=== PATIENT | female | born 1960 | race Caucasian/White ===

== ENCOUNTER → 2018-05-27 | Outpatient (CLI) | payer BC ==
--- NOTE | 2018-06-12 08:45 | Diagnostic Imaging Report ---
#[id number] - [id number] #BILATERAL DIGITAL SCREENING MAMMOGRAM WITH CAD: 05/27/2018 CLINICAL: Routine screening. Comparison is made to exam dated: 10/13/2013 mammogram - [facility]. Current study contains 4 films. The tissue of both breasts is extremely dense, which lowers the sensitivity of mammography. Current study was also evaluated with a Computer Aided Detection (CAD) system. There are benign vascular calcifications and scattered calcifications in both breasts. There also are benign lymph nodes in both breasts. No significant masses, calcifications, or other findings are seen in either breast. There has been no significant interval change. IMPRESSION: BENIGN There is no mammographic evidence of malignancy. A 1 year screening mammogram is recommended. The patient will be notified by letter of the results. Germain Pastrana Jr., D.O. cw/:06/11/2018 13:01:33 [employer] Side Laster: Minerva CONTEH)([place]), [facility] letter sent: Compared to Prior B9 Mammogram BI-RADS: 2 Benign
== END ==
LOC: MAMMO 07:50
PROVIDERS: ATTEND Family Medicine
DX: Z12.31 Encounter for screening mammogram for malignant neoplasm of breast (principal)
CPT/HCPCS: 77067

== ENCOUNTER → 2018-11-08 | Outpatient (CLI) | payer BC ==
--- NOTE | 2018-11-08 11:58 | Diagnostic Imaging Report ---
EXAM: Right upper quadrant abdominal ultrasound INDICATION: Right sided abdominal pain. COMPARISON: Gallbladder ultrasound 11/20/2013. TECHNIQUE: Transverse and longitudinal images of the right upper quadrant abdomen were obtained FINDINGS: Liver: Size: 14.4 cm in the right midclavicular line, normal Appearance: Increased echogenicity, smooth contour Mass: No focal masses Gallbladder: No distention, pericholecystic fluid, wall thickening, stone, or reported sonographic Dela Cruz's sign. Mild gallbladder sludge. Gallbladder wall measures 0.2 cm. Bile Ducts: Intrahepatic Ducts: No dilatation Extrahepatic Ducts: Common bile duct measures 0.3cm, no dilatation Pancreas: Visualized portions of the pancreatic head, neck and proximal body are normal. Kidney: The right kidney measures 9.3 cm without evidence of hydronephrosis or stone. Vessels: Aorta: Visualized portions are normal Inferior Vena Cava: Visualized portions are normal Main Portal Vein: 0.8 cm, normal size with hepatopetal flow. Free Fluid: No evidence of ascites. IMPRESSION: Hepatic steatosis. Mild gallbladder sludge. Signed by: Dr. Thania Ba MD on 11/08/2018 11:55 AM
== END ==
LOC: US 10:30
PROVIDERS: ATTEND Surgery
DX: R10.11 Right upper quadrant pain (principal); K76.0 Fatty (change of) liver, not elsewhere classified; K82.8 Other specified diseases of gallbladder
CPT/HCPCS: 76705

== ENCOUNTER → 2021-01-12 | Outpatient (CLI) | payer OTHER | LOC: MAMMO 14:31 | PROVIDERS: ATTEND Pediatrics | DX: Z12.31 Encounter for screening mammogram for malignant neoplasm of breast (principal); R22.2 Localized swelling, mass and lump, trunk | CPT/HCPCS: 71046; 77067 ==

== ENCOUNTER 2022-03-13 13:34 | Outpatient (RCR) | payer BC | END 2022-03-29 | LOC: PT 13:34 | PROVIDERS: ATTEND Physician Assistant | DX: M75.82 Other shoulder lesions, left shoulder (principal) ==

== ENCOUNTER 2022-08-08 04:15 | Inpatient (IN) | payer BC ==
[~2022-08-08] VITALS: Ht 160 cm; Wt 61.2 kg
[2022-08-08 04:36] LABS: BASOPHILS % 0.2 % (0.0-1.0); EOSINOPHILS # (AUTO) 0.3 (0.0-0.4); EOSINOPHILS % 2.3 % (0.0-6.0); HEMOGLOBIN 13.1 g/dL (12.0-16.0); LYMPHOCYTES # (AUTO) 3.6 (1.0-3.2); LYMPHOCYTES % 26.9 % (18.0-39.1); MEAN CORPUSCULAR HEMOGLOBIN 29.6 pg (28-32); MEAN CORPUSCULAR HGB CONC 30.5 g/dL (31-35); MEAN CORPUSCULAR VOLUME 97.1 fL (81-99); MONOCYTES # (AUTO) 0.9 (0.2-0.8); MONOCYTES % 6.7 % (4.4-11.3); NEUTROPHILS # (AUTO) 8.4 (2.1-6.9); NEUTROPHILS % 63.6 % (38.7-80.0); PLATELET COUNT 294 x10e3/uL (140-360); RED BLOOD COUNT 4.43 x10e6/uL (3.6-5.1); RED CELL DISTRIBUTION WIDTH 12.4 % (11.7-14.4)
[2022-08-08 04:51] LABS: ALANINE AMINOTRANSFERASE 13 IU/L (0-55); ALBUMIN/GLOBULIN RATIO 1.1 (0.8-2.0); ALKALINE PHOSPHATASE 91 IU/L (40-150); ANION GAP 17.5 mmol/L (8-16); BLOOD UREA NITROGEN 19 mg/dL (7-26); BUN/CREATININE RATIO 22 (6-25); CALCIUM 9.2 mg/dL (8.4-10.2); CARBON DIOXIDE 24 mmol/L (22-29); CHLORIDE 104 mmol/L (98-107); CREATINE KINASE 79 IU/L (29-168); CREATININE, SERUM 0.85 mg/dL (0.57-1.11); GLUCOSE 159 mg/dL (74-118); POTASSIUM 3.5 mmol/L (3.5-5.1); SODIUM 142 mmol/L (136-145)
[2022-08-08] MEDS ORDERED: ACETAMINOPHEN 325 MG TAB PO ONE (05:30)
[2022-08-08] MEDS ORDERED: ACETAMINOPHEN 325 MG TAB ONE (05:31)
[2022-08-08] MEDS ORDERED: SODIUM CHLORIDE FLUSH 10 ML SYR INJ PRN (06:00)
[2022-08-08] MEDS ORDERED: ONDANSETRON HCL INJ 2MG/ML 2ML 2 MG/ML VIAL IV PRN (06:00)
[2022-08-08 12:42] VITALS: BP 168/88
[2022-08-08] MEDS ORDERED: PANTOPRAZOLE SO40 MG PO (12:42)
[2022-08-08] MEDS ORDERED: CYCLOBENZAPRINE5 MG PO (12:42)
[2022-08-08] MEDS ORDERED: METOPROLOL SUCC50 MG PO (12:42)
[2022-08-08] MEDS ORDERED: LISINOPRIL20 MG PO (12:42)
[2022-08-08] MEDS ORDERED: ROSUVASTATIN CA20 MG PO (12:42)
[2022-08-08 12:49] VITALS: BP 168/88
[2022-08-08 13:05] VITALS: BP 168/88
[2022-08-08] MEDS: ACETAMINOPHEN 325 MG TAB PO PRN ×2 (13:14→22:45)
[2022-08-08 13:47] LABS: CREATINE KINASE 60 IU/L (29-168)
[2022-08-08 16:20] VITALS: BP 172/84
[2022-08-08 22:26] VITALS: BP 166/72
[2022-08-08] MEDS ORDERED: MAGNESIUM/ALUMINUM/SIMETHICONE 30 ML UDC PO ONE (22:30)
[2022-08-08] MEDS ORDERED: METOPROLOL SUCCINATE 50 MG TAB XL PO ONE (22:30)
[2022-08-08] MEDS ORDERED: LISINOPRIL 20 MG TAB PO ONE (22:30)
[2022-08-08] MEDS: CRESTOR 10MG PO SCH (22:43)
[2022-08-09] VITALS (7 sets, daily range): BP systolic 109–167; BP diastolic 62–94
[2022-08-09 01:39] LABS: CREATINE KINASE 47 IU/L (29-168)
[2022-08-09 05:52] LABS: BASOPHILS % 0.3 % (0.0-1.0); EOSINOPHILS % 0.1 % (0.0-6.0); HEMATOCRIT 41.5 % (34.2-44.1); HEMOGLOBIN 12.9 g/dL (12.0-16.0); LYMPHOCYTES # (AUTO) 1.9 (1.0-3.2); LYMPHOCYTES % 20.3 % (18.0-39.1); MEAN CORPUSCULAR HEMOGLOBIN 29.5 pg (28-32); MEAN CORPUSCULAR HGB CONC 31.1 g/dL (31-35); MONOCYTES # (AUTO) 0.9 (0.2-0.8); MONOCYTES % 9.9 % (4.4-11.3); NEUTROPHILS # (AUTO) 6.4 (2.1-6.9); NEUTROPHILS % 69.1 % (38.7-80.0); PLATELET COUNT 274 x10e3/uL (140-360); RED BLOOD COUNT 4.37 x10e6/uL (3.6-5.1); RED CELL DISTRIBUTION WIDTH 12.3 % (11.7-14.4)
[2022-08-09 06:25] LABS: ALBUMIN 3.6 g/dL (3.5-5.0); ALBUMIN/GLOBULIN RATIO 0.9 (0.8-2.0); ANION GAP 14.5 mmol/L (8-16); CALCIUM 9.1 mg/dL (8.4-10.2); CREATININE, SERUM 0.85 mg/dL (0.57-1.11); POTASSIUM 3.5 mmol/L (3.5-5.1)
[2022-08-09] MEDS: LISINOPRIL 20 MG TAB PO SCH (08:26)
[2022-08-09] MEDS: METOPROLOL SUCCINATE 50 MG TAB XL PO SCH (08:26)
[2022-08-09] MEDS: PANTOPRAZOLE SOD 40 MG TABEC PO SCH (08:26)
[2022-08-09] MEDS: ACETAMINOPHEN 325 MG TAB PO PRN ×2 (08:38→20:30)
[2022-08-09] MEDS ORDERED: SODIUM CHLORIDE 0.9% 100 ML ONE (08:57)
[2022-08-09] MEDS ORDERED: IOPAMIDOL 370 MG/ML 100 ML INFUS..BTL INJ ONE (08:57)
[2022-08-09] MEDS: CRESTOR 10MG PO SCH (20:31)
[2022-08-10] VITALS (7 sets, daily range): BP systolic 113–186; BP diastolic 68–85
[2022-08-10] MEDS: PANTOPRAZOLE SOD 40 MG TABEC PO SCH (07:46)
[2022-08-10] MEDS: METOPROLOL SUCCINATE 50 MG TAB XL PO SCH (08:38)
[2022-08-10] MEDS: LISINOPRIL 20 MG TAB PO SCH (08:39)
[2022-08-10] MEDS: GUAIFENESIN/DEXTROMETHORPHAN LIQD 5 ML UDC PO PRN ×2 (12:14→17:10)
[2022-08-10] MEDS ORDERED: ONDANSETRON HCL 4 MG ORAL DISINTEGRATING TAB PO PRN (15:30)
[2022-08-10] MEDS: ACETAMINOPHEN 325 MG TAB PO PRN (17:10)
[2022-08-10] MEDS ORDERED: ASPIRIN 81 MG CHEW TAB PO STA (20:21)
[2022-08-10] MEDS ORDERED: CLOPIDOGREL BISULFATE 75 MG TAB PO ONE (20:30)
[2022-08-10] MEDS: CRESTOR 10MG PO SCH (21:08)
[2022-08-11] VITALS (7 sets, daily range): BP systolic 111–175; BP diastolic 62–80
[2022-08-11] MEDS: GUAIFENESIN/DEXTROMETHORPHAN LIQD 5 ML UDC PO PRN ×3 (04:26→21:22)
[2022-08-11] MEDS: PANTOPRAZOLE SOD 40 MG TABEC PO SCH (08:24)
[2022-08-11] MEDS: ASPIRIN 81 MG CHEW TAB PO SCH (08:24)
[2022-08-11] MEDS: LISINOPRIL 20 MG TAB PO SCH (08:24)
[2022-08-11] MEDS: CLOPIDOGREL BISULFATE 75 MG TAB PO SCH (08:24)
[2022-08-11] MEDS: METOPROLOL SUCCINATE 50 MG TAB XL PO SCH (08:25)
[2022-08-11] MEDS: CRESTOR 10MG PO SCH (21:23)
[2022-08-12 00:13] VITALS: BP 138/66
[2022-08-12 05:07] VITALS: BP 138/72
[2022-08-12] MEDS ORDERED: ASPIRIN81 MG PO (07:39)
[2022-08-12] MEDS ORDERED: PLAVIX75 MG PO (07:39)
[2022-08-12] MEDS ORDERED: CRESTOR10 MG PO (07:40)
[2022-08-12] MEDS: PANTOPRAZOLE SOD 40 MG TABEC PO SCH (07:47)
[2022-08-12] MEDS: ASPIRIN 81 MG CHEW TAB PO SCH (07:47)
[2022-08-12] MEDS: LISINOPRIL 20 MG TAB PO SCH (07:47)
[2022-08-12] MEDS: METOPROLOL SUCCINATE 50 MG TAB XL PO SCH (07:48)
[2022-08-12] MEDS: CLOPIDOGREL BISULFATE 75 MG TAB PO SCH (07:48)
[2022-08-12 07:49] VITALS: BP 159/67
== END 2022-08-12 08:39 | disposition home or self-care (01) | DRG 179 ==
LOC: ER 04:20 → ERHOLD 05:50 → MED/SURG2 12:11 → OBSVTOIN 08-10 08:05
PROVIDERS: ADMIT Family Medicine; ATTEND Family Medicine
DX: U07.1 COVID-19 (principal); E86.0 Dehydration; R55 Syncope and collapse; I65.21 Occlusion and stenosis of right carotid artery; I10 Essential (primary) hypertension; I67.2 Cerebral atherosclerosis; E78.5 Hyperlipidemia, unspecified; S80.02XA Contusion of left knee, initial encounter; S80.01XA Contusion of right knee, initial encounter; Z82.49 Family history of ischemic heart disease and other diseases of the circulatory system; Z79.899 Other long term (current) drug therapy; Z86.73 Personal history of transient ischemic attack (TIA), and cerebral infarction without residual deficits
CPT/HCPCS: 36415; 70450; 70496; 70498; 70544; 70547; 70551; 71045; 72125; 80053; 82550; 82553; 83735; 84484; 85025; 85651; 86021; 86431; 86592; 93005; 93306; 93880; 95819; 99285; G0378; J7050; Q9967

== ENCOUNTER 2024-03-28 14:43 | Emergency (ER) | payer OTHER, BC ==
[~2024-03-28] VITALS: Ht 160 cm; Wt 61.2 kg
[~2024-03-28 14:43] MED LIST: ASPIRIN81 MG PO; CRESTOR10 MG PO; CYCLOBENZAPRINE5 MG PO; LISINOPRIL20 MG PO; METOPROLOL SUCC50 MG PO; PANTOPRAZOLE SO40 MG PO; PLAVIX75 MG PO; ROSUVASTATIN CA20 MG PO
[2024-03-28 15:52] VITALS: PULSE 72; RESP 14; TEMP 98.2; O2SAT 100
[2024-03-28] MEDS: CYCLOBENZAPRINE HCL 10 MG TAB PO ONE (16:15)
== END 2024-03-28 19:20 | disposition home or self-care (01) ==
LOC: ER 15:59
DX: R51.9 Headache, unspecified (principal); R07.89 Other chest pain; M54.2 Cervicalgia; V43.51XA Car driver injured in collision with sport utility vehicle in traffic accident, initial encounter; Y92.488 Other paved roadways as the place of occurrence of the external cause; D68.9 Coagulation defect, unspecified; Z79.01 Long term (current) use of anticoagulants; I10 Essential (primary) hypertension; E11.9 Type 2 diabetes mellitus without complications; E78.5 Hyperlipidemia, unspecified; I25.10 Atherosclerotic heart disease of native coronary artery without angina pectoris
CPT/HCPCS: 70450; 71250; 72125; 99284